=== PATIENT | female | born 1980 | race Caucasian/White ===

== ENCOUNTER 2020-01-09 11:37 | Emergency (ER) | payer OTHER ==
[~2020-01-09] VITALS: Ht 167.6 cm; Wt 57.2 kg
[2020-01-09] MEDS ORDERED: BACTRIM DS TAB1 EACH PO (12:42)
== END 2020-01-09 12:53 | disposition home or self-care (01) ==
LOC: ER 11:37
DX: L08.89 Other specified local infections of the skin and subcutaneous tissue (principal)